=== PATIENT | male | born 1940 | race Caucasian/White ===

== ENCOUNTER 2016-09-12 08:38 | Inpatient (IN) | payer MEDICARE, BC ==
[~2016-09-12] VITALS: Ht 185.4 cm; Wt 95.5 kg
[~2016-09-12 08:38] MED LIST: CETIRIZINE HCL5 MG PO; MOBIC7.5 MG PO; PRAVASTATIN SOD10 MG PO
--- NOTE | 2016-09-12 10:51 | NUR ---
ASSESSMENT PER ADMIT PACK.PT DECLINES SOME OF MEDS.HE WISHES TO TAKE MEDS FROM HOME.INSTRUCTED PT NOT TO TAKE HOME MEDS UNTIL WE ASK MD AND HAVE ORDER TO DO SO.ALSO INSTRUCTED HIM MED WOULD HAVE TO GO TO PHARMACY FOR IDENTIFICATION.DROPLET ISOLATION ORDERED.IV SITED TO LEFT FOREARM X1 STICK USING ASEPTIC TECH,20G.PT TOLERATED WELL.CALL LIGHT IN REACH
[2016-09-12 11:02] VITALS: BP 136/78; Ht 185.4 cm; Wt 95.5 kg
--- NOTE | 2016-09-12 11:30 | NUR ---
PATIENT MOVED TO ROOM 2205 WITH HIS CONSENT. DENIES NEEDS.
[2016-09-12 11:43] LABS: BASOPHILS 0.2 % (0.0-2.0); EOSINOPHILS 0.9 % (0-7); HEMATOCRIT 42.4 % (42.0-54.0); HEMOGLOBIN 13.8 g/dL (13.5-17.5); LYMPHOCYTES 31.8 % (15-50); MCH 29.6 pg (26.0-34.0); MCHC 32.5 g/dL (31.0-37.0); MEAN PLATELET VOLUME 10.6 fL (7.4-10.4); MONOCYTES 9.5 % (2-11); NEUTROPHILS 57.6 % (40-80); PLATELET COUNT 174 10x3/uL (130-400); RBC 4.66 10x6/uL (4.20-6.10); RDW 12.2 % (11.5-14.5); WBC 5.8 10x3/uL (4.8-10.8)
[2016-09-12 12:08] LABS: ALBUMIN 3.4 g/dL (3.4-5.0); ANION GAP 11.9 mmol/L (8-16); BILIRUBIN - TOTAL 0.4 mg/dL (0.2-1.3); CALCIUM 8.9 mg/dL (8.5-10.1); CARBON DIOXIDE 28.7 mmol/L (21.0-32.0); CREATININE - SERUM 1.3 mg/dL (0.6-1.3); PHOSPHOROUS 3.7 mg/dL (2.5-4.9); POTASSIUM - SERUM 4.6 mmol/L (3.5-5.1); PROTEIN - SERUM 6.2 g/dL (6.4-8.2); THYROID STIMULATING HORMONE 1.24 uIU/mL (0.36-3.74)
--- NOTE | 2016-09-12 12:30 | NUR ---
ATE ALMOST ALL OF LUNCH. DENIES NEEDS. UP PER SELF TO BR AND TO PERFORM ADL'S.
--- NOTE | 2016-09-12 14:30 | NUR ---
OFF UNIT VIA WC FOR CHEST EXRAY.
--- NOTE | 2016-09-12 14:45 | NUR ---
RETURNED TO ROOM. DENIES NEEDS. AT BEDSIDE.
[2016-09-12 16:19] VITALS: BP 137/79; BP 141/63
--- NOTE | 2016-09-12 18:08 | NUR ---
ATE ALL OF SUPPER. NO CHANGES NOTED. DR. ENGILSH HERE. DENIES NEEDS.
--- NOTE | 2016-09-12 20:00 | NUR ---
PATIENT UP AT SINK BRUSHING HIS TEETH. PATIENT STATED HE DOES NOT NEED ANYTHING AT THIS TIME.
[2016-09-12 21:00] VITALS: BP 137/60
[2016-09-13 01:00] VITALS: BP 138/58
[2016-09-13 05:00] VITALS: BP 118/58
[2016-09-13 08:38] VITALS: BP 125/66
[2016-09-13 09:24] LABS: APPEARANCE CLEAR (CLEAR); BILIRUBIN NEGATIVE (NEGATIVE); COLOR YELLOW (YELLOW); GLUCOSE NEGATIVE (NEGATIVE); KETONE NEGATIVE (NEGATIVE); LEUKOCYTE ESTERASE NEGATIVE (NEGATIVE); NITRITE NEGATIVE (NEGATIVE); PROTEIN NEGATIVE (NEGATIVE); SPECIFIC GRAVITY 1.015 (1.005-1.020); UROBILINOGEN NORMAL (NORMAL)
[2016-09-13 11:56] VITALS: BP 142/69
--- NOTE | 2016-09-13 12:40 | NUR ---
RESUME PLAN OF CARE. REPORT FROM NING LEDEZMA. ALERT AND ORIENTED X4. DENIES SOB OR PAIN. PLAN TO MOVE TO 2240 AFTER CLEAN. IV LT FA PATENT, INFUSING ORDERED. CONTINUE PLAN OF CARE AND SAFETY PRECAUTIONS.
[2016-09-13 15:46] VITALS: BP 129/63
--- NOTE | 2016-09-13 16:49 | NUR ---
ALERT AND ORIENTED X4. TRANSFER TO ROOM 2240 PER LILY. DENIES SOB OR PAIN. BED LOCKED AND LOW. CALL LIGHT IN REACH. TWO SIDERAILS UP.
[2016-09-13 19:00] VITALS: BP 132/69
[2016-09-14 04:00] VITALS: BP 120/62
--- NOTE | 2016-09-14 07:15 | NUR ---
AWAKE ALERT COLOR ADQ SKIN WARM AND DRY RESP EVEN AND UNLABORED AT PRESENT.
[2016-09-14 09:06] VITALS: BP 141/50
--- NOTE | 2016-09-14 09:15 | NUR ---
MEDS GIVEN COLT WELL FAMILY AT BEDSIDE.
--- NOTE | 2016-09-14 10:48 | CN ---
PATIENT NAME:SAI FORD MEDICAL RECORD: [id number] : 40 LOCATION:D[facility] ADMIT DATE: 09/12/16 ACCOUNT: [id number] CONSULTING PHYSICIAN: SHABANA CROSS MD REFERRING PHYSICIAN: GAIL ENGLISH MD DATE OF CONSULTATION: 09/13/2016 Rheumatology Consultation HISTORY OF PRESENT ILLNESS: Sai Ford is a 76-year-old gentleman whom I have been asked to evaluate by Dr. English regarding history of abnormal chest CT since April 2016 showing some interstitial changes and "tree-in-bud" changes which have been unchanged on CTs since April 2016, August 2016 and September 2016. The patient underwent BAL in August 2016. At which time, he was found to have multiple drug resistant pseudomonas. QuantiFERON TB gold and AFB smears were negative. Final TB cultures pending. TB DNA test was negative. Fungal culture and serologies were negative. The patient is now hospitalized with cough and noted to be bronchitis by Dr. De Jesus and treated with Rocephin. Overall, he is improving. He denies current chills, sweats or rigor. The patient has had arthritis for several years. He has had enlargement of his PIPs and DIPs with limited motion with nodule formation on his joints. He also has some mild enlargement around the thumbs. He reports some intermittent mild hand swelling which is exacerbated by use of his hands. He has relatively little discomfort or swelling around the MCPs or wrists. In addition, he has prominent bony enlargement of first MTPs bilaterally, but he has had relatively little discomfort in those joints. He does not report any episodes of ____ or other acute oligoarticular or monoarthritis. The patient was found to have a positive rheumatoid factor of 59.5 on 08/06/2016, rheumatoid factor screen is currently positive, repeat titer pending. FANTASMA was negative in August 2016. He has no known family history of rheumatoid arthritis, lupus, connective tissue disease or gout. He has never had renal stones. At home, he uses meloxicam 15 mg a day which helps somewhat. He was found to have B12 deficiency in 2015, treated with weekly B12 shots 1 month now and then received these monthly. The patient has had some tingling in his feet and lower legs in August 2016, but this has not improved with treatment with B12. He has never had chemotherapy, heavy metal poisoning, diabetes or consumed large amounts of alcohol. HOME MEDICATIONS: Pravastatin 10 mg daily, meloxicam 15 mg daily, Zyrtec 5 mg daily and vitamin B12 shots monthly. CURRENT MEDICATIONS: Cefazolin 2 grams IV every 12 hours, started on 09/12/2016, albuterol updrafts t.i.d., meloxicam 15 mg daily, Flonase daily, pravastatin 20 mg daily, Mucinex DM b.i.d., fexofenadine 60 mg daily, Pepcid 20 mg b.i.d., Lovenox 40 mg subcutaneous daily, Tessalon 200 mg t.i.d., IV fluids, CONSULT REPORT [id number] SAI FORD acetaminophen p.r.n. ALLERGIES: HE REPORTS ALLERGIES TO MOLD. THERE ARE NO REPORTS OF ANY MEDICATION ALLERGIES. PAST MEDICAL HISTORY: The patient had cervical spine fusion in 2013. He had melanoma resected from his left suprascapular area in 2009 without known recurrence. Lymph node dissection at that time was negative. He has osteoarthritis and degenerative disease in his lower back by MRI at [facility]. He has had arthritis as discussed above. Asthma, ____. He has had tingling in his feet or legs since 2016. He was found to have B12 deficiency in 2016 and treated with monthly IM B12 without apparent improvement in tingling. SOCIAL HISTORY: Former smoker, does not drink alcohol. He is retired. FAMILY HISTORY: Parent had lung disease and cancer. Positive family history of ASHD. There is no known family history of rheumatoid arthritis, lupus or connective tissue disease or gout. REVIEW OF SYSTEMS: See history of present illness. He has moderate hearing loss, wears hearing aids. He denies mouth ulcers, dysphagia, thyroid disease, lymphadenopathy, chest pain wheeze, orthopnea, PND, myocardial infarction, angina, epigastric discomfort, ulcers, hepatitis, gallstones, dysuria, urgency, hesitancy, TIA, stroke, bleeding or clotting disorders, mood change or memory loss. PHYSICAL EXAMINATION: VITAL SIGNS: Blood pressure 129/63, pulse 78, respirations 20, temperature 98.2. GENERAL: The patient is a well-developed elderly man in no acute distress. HEENT: Head, normal male hair pattern. Eyes, conjunctivae are clear. Mouth is slightly dry without lesions. NECK: Free of adenopathy or masses. LUNGS: Clear without rales, rhonchi or dullness. CARDIOVASCULAR: S1, S2 are normal without gallop, murmur or rub. ABDOMEN: Soft, nontender without organomegaly or masses. MUSCULOSKELETAL: There is bony enlargement of all PIPs and DIPs with superimposed nodules most of these joints. Fingers have limited flexion and extension. MCPs are nontender without inflammation. Wrists have almost full range of motion without discomfort. There is mild bony enlargement and mild limited range of motion of the first CMCs, MCPs with mild osteoarthritis, stenciling machine tender strength is fair. Tinel sign is negative. Prominent nontender bony enlargement of first MTPs bilaterally, questionable nodule or angular deformity of the left second TIP joint (possible remote trauma), questionable tenderness in the right plantar heel from plantar fasciitis. There is no inflammation or limited motion of the ankles, knees, hips, elbows or shoulders. NEUROLOGIC: He is quite hard of hearing. Otherwise, cranial nerves are intact. He has some tingling to light touch in the feet and lower legs. Muscle strength is 5/5, proximally and distally. SKIN: He has an ulcer on the PIP and DIP joints as outlined above. There are no nodules on the ears, elbows, knees, questionable nodules around the feet. IMPRESSIONS: 1. Arthritis of hands and feet. A. Probably involving the PIPs and DIPs with bony enlargement and nodules. CONSULT REPORT [id number] SAI FORD Consider rheumatoid arthritis and/or possibly gout. B. Arthritis of thumbs bilaterally. C. Probably involving the first MTPs, consider gout or osteoarthritis. D. Positive rheumatoid factor 59.5. 2. History of cervical spine fusion. 3. Abnormal chest CT in April 2016 and September 2016 with stable interstitial tree-in-bud type changes. 4. 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 5. Melanoma resected from left upper scapular area in 2009 with negative lymph node dissection without known recurrence. RECOMMENDATIONS: 1. Await current rheumatoid factor titer. 2. Check CCP. 3. Hepatitis B and C serologies. 4. Uric acid. 5. X-rays of hands and feet. 6. Caution and continue meloxicam, observe for any GI side effects. 7. If inflammatory arthritis is detected, we will try to avoid immunosuppressive medications in line of his multi-drug resistant Pseudomonas. 8. Defer evaluation of chronic right chest CT changes with pulmonary. 9. Continue broad-spectrum antibiotics for bronchitis per infectious disease. DISCUSSION: Mr. Ford's chest findings are primarily on the right side and there are no reports of any involvement of the left lung. It would be unusual for rheumatoid arthritis to cause the problem of interstitial disease on one side, but certainly possible. I cannot hear any definite rales at this time. Let us see what his x-rays of his hands and the serological tests show. He does have prominent ulcers around the PIP and DIP joints. If he is diagnosed with rheumatoid arthritis, we will avoid immunosuppressor drugs, possibly we could treat with something mild such as hydroxychloroquine. TRANSINT:[id number] Voice Confirmation ID: [id number] DOCUMENT ID: [id number] SHABANA CROSS MD at 1048 CC: [id number] DICTATION DATE: 09/13/162013 HOME CARE SPECIALIST: 09/14/16 0012 ADM IN [facility] [address] [place] [address]
--- NOTE | 2016-09-14 12:00 | NUR ---
TELEMTRY IN PLACE NSR AT PRESENT N/C VOICED AT PRESENT.
[2016-09-14 12:26] VITALS: BP 143/52
--- NOTE | 2016-09-14 14:00 | NUR ---
VISITORS AT BEDSIDE N/C VOICED AT PRESENT.
--- NOTE | 2016-09-14 16:00 | NUR ---
QUIET IN ROOM AT PRESENT ALERT TALKATIVE AT PRESENT N/C.
[2016-09-14 16:13] VITALS: BP 138/50
--- NOTE | 2016-09-14 18:36 | NUR ---
TO X-RAY FOR CXR IV CONT AT 50CC/HR/IVAC FAMILY AT BEDSIDE AT PRESENT.
[2016-09-14 19:00] VITALS: BP 146/64
--- NOTE | 2016-09-15 02:54 | NUR ---
PT IS ASLEEP WITH A DARK ROOM DESIRED. THE RESPIRATIONS ARE EASY AND NO DISTESS IS NOTED. HE REMAINS IN DROPLET ISOLATION.. THE BED IS LOW, RAILS UP X'S 2, WITH THE CALL LIGHT AT HAND.
[2016-09-15 04:00] VITALS: BP 128/71
[2016-09-15 07:44] LABS: BASOPHILS 0.2 % (0.0-2.0); EOSINOPHILS 2.1 % (0-7); HEMOGLOBIN 13.6 g/dL (13.5-17.5); LYMPHOCYTES 36.7 % (15-50); MCH 29.7 pg (26.0-34.0); MCHC 32.4 g/dL (31.0-37.0); MCV 91.7 fL (80.0-100.0); MEAN PLATELET VOLUME 10.1 fL (7.4-10.4); MONOCYTES 9.6 % (2-11); NEUTROPHILS 51.4 % (40-80); PLATELET COUNT 167 10x3/uL (130-400); RBC 4.58 10x6/uL (4.20-6.10); RDW 12.5 % (11.5-14.5); WBC 6.2 10x3/uL (4.8-10.8)
[2016-09-15 08:06] LABS: CALC OSMOLALITY 289 mosm/kg (275-300); CALCIUM 8.5 mg/dL (8.5-10.1); CARBON DIOXIDE 29.5 mmol/L (21.0-32.0); CHLORIDE - SERUM 110 mmol/L (98-107); CREATININE - SERUM 1.2 mg/dL (0.6-1.3); GLUCOSE 100 mg/dL (74-106); POTASSIUM - SERUM 4.1 mmol/L (3.5-5.1); PRO BNP 215 pg/mL (0-450); SODIUM 145 mmol/L (136-145); UREA NITROGEN 14 mg/dL (7-18); eGFR NON AFRICAN AMERICAN 63 mL/min (90-120)
[2016-09-15 08:13] LABS: TROPONIN-I < 0.017 ng/mL (0.000-0.060)
--- NOTE | 2016-09-15 08:15 | NUR ---
RECEVIED PATIENT DURING WALKING ROUNDS. PATIENT LYING IN BED WITH EVEN RESPIRATIONS. NO SIGNS OF DISTRESS NOTED. PPE WORN WHILE IN ROOM. ASSESSMENT DONE PER FLOW SHEET. BED IN LOW POSITION AND CALL LIGHT WITHIN REACH. WILL CONTINUE TO MONITOR.
[2016-09-15 08:24] VITALS: BP 119/65
[2016-09-15 11:52] VITALS: BP 120/72
--- NOTE | 2016-09-15 12:01 | NUR ---
PATIENT SITTING UP IN CHAIR AT THIS TIME. IV RESTARTED IN RIGHT ARM. 22 G. X 1 STICK. PATIENT TOLERATED WITH SMALL AMOUNT OF PAIN. NO COMPLAINTS. CALL LIGHT WITHIN REACH.
[2016-09-15 16:27] VITALS: BP 156/70
[2016-09-15] MEDS ORDERED: KEFLEX500 MG PO (17:08)
[2016-09-15] MEDS ORDERED: OMEPRAZOLE20 M1 PO (17:09)
--- NOTE | 2016-09-15 18:11 | NUR ---
PT DISCHARGE ORDERS PUT IN. WENT OVER INSTRUCTIONS WITH PT, NO QUESTIONS. REMOVED IV WITH CATHETER INTACT AND WALKED PT OUT OF THE BUILDING
[2016-09-17 10:16] LABS: HEPATITIS C ANTIBODY <0.1 (0.0-0.9)
[2016-09-17 20:08] LABS: CYCLIC CITRULL PEPTIDE IGG/IGA 3 units (0-19)
--- NOTE | 2016-09-23 15:45 | EC ---
PATIENT:SARA FORD DATE OF SERVICE: 09/12/16 SEX: M MEDICAL RECORD: [id number] DATE OF : 40 LOCATION:D.MS [facility] AGE OF PATIENT: 76 ADMISSION DATE: 09/12/16 REFERRING PHYSICIAN: INTERPRETING PHYSICIAN: JESSICA VALDES M.D. ECHOCARDIOGRAM REPORT ECHO CHARGES 4 ECHO COMPLETE CLINICAL DIAGNOSIS: dyspnea ECHOCARDIOGRAPHIC MEASUREMENTS (adult normal given) AC root (d.<3.7cm) 3.4 LV Septum d (<1.2 cm> 1.2 Valve Excursion LV Septum (systole) Left Atria (s.<4.0cm> 3.0 LVPW d(<1.2cm) 1.2 RV (d.<2.3cm) 2.4 LVPW (sytole) LV diastole(<5.6CM) 4.3 MV E-F(>70mm/sec) LV systole 3.1 LVOT Diameter 2.0 MV exc.(>10mm) Est.ejection fraction (50-75%) 55 Pericardial Effusion DOPPLER: LVIT A 69 E 90 LA RVSP LVOT 148 AOP1/2T Asc. Ao 180 RVOT RA PA 117 AV Gradient Peak 12.9 AV Mean 6.9 AV Area 2.5 MV Gradient Peak 3.6 MV Mean 1.4 MV Area 4.0 COMMENTS: Car Cleaner: Suzanne Messina [employer] Shift Superintendent:Blanca Valdes TAPE# DATE OF SERVICE: 09/14/2016 REFERRING PHYSICIAN: Owen Woods MD INDICATION: Dyspnea. DESCRIPTION: Left ventricle appears normal in size and function. No wall motion abnormalities are seen. Its ejection fraction is 60%. Mitral valve structures are normal. There is mild regurgitation seen. Left atrium is normal in size. The aortic valve is trileaflet. There is no stenosis or regurgitation ECHOCARDIOGRAM REPORT [id number] SARA FORD seen. Right ventricle is normal in size and function. Tricuspid valve is normal. There is no regurgitation seen. Right atrium is normal in size. There is no pericardial effusion noted. IMPRESSION: 1. Normal left ventricular size and function, ejection fraction of 55% to 60%. 2. Mild mitral regurgitation. TRANSINT:[id number] Voice Confirmation ID: [id number] DOCUMENT ID: [id number] JESSICA VALDES M.D. at 1545 CC: [id number] DICTATION DATE: 09/14/16 174 FILM TESTS CHECKER: 09/14/166 DIS IN 09/15/16 [id number] [place] [address]
--- NOTE | 2016-09-25 09:13 | CN ---
PATIENT NAME:SARA FORD MEDICAL RECORD: [id number] : 40 LOCATION:D[facility] ADMIT DATE: 09/12/16 ACCOUNT: [id number] CONSULTING PHYSICIAN: AALIYAH WILD MD REFERRING PHYSICIAN: GAIL ENGLISH MD DATE OF CONSULTATION: 09/12/2016 CONSULT REQUESTING PHYSICIAN: Gail English MD REASON FOR CONSULTATION: Pneumonia, right middle and right lower lobe consistent with pseudomonas. HISTORY OF PRESENT ILLNESS: Mr. Ford is a 76-year-old gentleman who has an abnormal CT scan and nonresolving pneumonia in the right lower lobe, right middle lobe, with some bud-tree configuration. The patient underwent bronchoscopy on first week of August, the washing and the culture were negative, but the brush is positive for pseudomonas. According to the patient, he has no fever and chills, no night sweats, but he is coughing and there is not much sputum production. Denies any fever and chills, no night sweats. REVIEW OF SYSTEMS: As in history of present illness. PAST MEDICAL HISTORY: 1. Pneumonia x2 years ago. 2. History of melanoma removed from back. 3. History of arthritis. 4. Chronic back pain. PAST SURGICAL HISTORY: 1. Spinal fusion in 2013. 2. Melanoma removed from his back. 3. He is status post bronchoscopy. ALLERGIES: HE IS ALLERGIC TO MOLD. MEDICATIONS: He is on pravastatin, Mobic and Zyrtec. PERSONAL AND SOCIAL HISTORY: The patient has remote history of smoking. He is a nondrinker. FAMILY HISTORY: Significant for lung diseases, parents has cancer. Siblings has cardiovascular disease, lung disease and cancer. PHYSICAL EXAMINATION: GENERAL: Now, the patient is lying comfortably in bed. He is not in acute distress. VITAL SIGNS: The blood pressure is 136/78, pulse is 62, respiration is 18, temperature is 99, SpO2 is 97% on room air. HEENT: Conjunctivae pink, sclerae nonicteric. NECK: Supple, no JVD. CHEST: The chest excursion is minimal on both sides. There are crackles at the right base. No wheezing. HEART: Rhythm regular, normal sound, no murmur. ABDOMEN: Soft. Bowel sounds present. No hepatosplenomegaly. RECTAL: Deferred. CONSULT REPORT [id number] FORD,SARA EXTREMITIES: No cyanosis, no clubbing, no pedal edema. SKIN: Warm, normal turgor. CENTRAL NERVOUS SYSTEM: The patient is awake and alert. There are no obvious cranial nerve abnormality. He is hard of hearing. CHEST RADIOGRAPH: There is infiltrate, right lower lobe. OTHER LABORATORY DATA: CBC: WBC 5.8, hemoglobin 13.8, hematocrit 42.4, the platelet count 174. Chemistry: Sodium 143, potassium is 4.6, BUN is 27, creatinine 1.7. IMPRESSION: 1. Pseudomonas pneumonia, right lower lobe, right middle lobe, the other cultures are negative, the brush is positive, possible contamination, colonization versus pathogen. 2. History of recurrent pneumonia. The etiology is not clear, possibly associated with gastroesophageal reflux disease. 3. Obstructive sleep apnea. 4. History of melanoma removed from his back. 6. Rheumatoid factor positive with arthritis, possible rheumatoid arthritis. 7. Chronic cough. 8. Ex-smoker with no documented chronic obstructive pulmonary disease. RECOMMENDATION: 1. Continue tobramycin antibiotic per Dr. De Jesus. 2. Follow labs in the morning. 3. Continue all of present home medications. The patient will need rheumatology evaluation. Dr. English, once again thanks for involving me in the care of Mr. Ford. TRANSINT:[id number] Voice Confirmation ID: [id number] DOCUMENT ID: [id number] AALIYAH WILD MD at 0913 CC: GAIL ENGLISH MD [id number] DICTATION DATE: 09/12/16 1502 SWAHILI TEACHER: 09/12/16 1531 DIS IN 09/15/[address] [facility] [address] [place] [address]
--- NOTE | 2016-11-30 13:41 | DS ---
PATIENT:SARA FORD I :40 MEDICAL RECORD: [id number] DISCHARGE SUMMARY ADMISSION DATE: 09/12/16 DISCHARGE DATE: 09/15/16 DATE OF ADMISSION: 09/12/2016 DATE OF DISCHARGE: 09/15/2016 DISCHARGE DIAGNOSES: Pneumonia, thought to be secondary to multidrug resistant pseudomonas, chronic obstructive pulmonary disease, nicotine dependence, rheumatoid arthritis, bronchitis. DISCHARGE MEDICATIONS: Per med reconciliation. DISCHARGE DIET: As tolerated. DISCHARGE ACTIVITY: As tolerated. HOSPITAL COURSE: The patient admitted from pulmonary clinic due to increasing respiratory distress. History of previous bronchoalveolar lavage was positive for multi-drug resistant pseudomonas. Consultation was obtained with Dr. De Jesus. The patient was initially placed on broad-spectrum antibiotics. Dr. De Jesus evaluated the patient and felt his comorbid conditions would not tolerate strong antibiotics in lieu of movement of his clinical presentation, the patient was changed to Rocephin IV and continued antibiotics. The patient remained stable, was changed eventually to cephalexin. The patient was subsequently discharged after evaluation with ID. Rheumatology was consulted due to history of positive rheumatoid factor and he underwent rheumatologic evaluation during hospitalization with complete workup upon discharge. TRANSINT:[id number] Voice Confirmation ID: [id number] DOCUMENT ID: [id number] GAIL ENGLISH MD at 1341 CC: [id number] DICTATION DATE: 10/20/16 1116 GEM SETTER: 10/20/162005 DIS IN 09/15/16 [facility] [address] [place] [address]
== END 2016-09-15 19:16 | disposition home or self-care (01) | DRG 179 ==
LOC: D.MS 08:38 → D.SDCHOLD 08:38 → D.MS 08:49
PROVIDERS: Internal Medicine Rheumatology; ADMIT Family Medicine
DX: J15.1 Pneumonia due to Pseudomonas (principal); Z87.891 Personal history of nicotine dependence; G47.33 Obstructive sleep apnea (adult) (pediatric); M06.9 Rheumatoid arthritis, unspecified; J40 Bronchitis, not specified as acute or chronic

== ENCOUNTER → 2016-10-04 10:00 | Outpatient (CLI) | payer MEDICARE, BC ==
[2016-09-12 11:02] VITALS: BMI 27.7
[~2016-10-04 10:00] MED LIST changes: +KEFLEX500 MG PO; +OMEPRAZOLE20 M1 PO
== END | disposition home or self-care (01) ==
LOC: D.RAD 10:00
DX: J45.909 Unspecified asthma, uncomplicated (principal)

== ENCOUNTER → 2017-04-08 07:40 | Outpatient (CLI) | payer MEDICARE, BC ==
[2016-09-12 11:02] VITALS: BMI 27.7
== END | disposition home or self-care (01) ==
LOC: D.RAD 07:40
DX: J45.909 Unspecified asthma, uncomplicated (principal)

== ENCOUNTER → 2017-12-31 08:37 | Outpatient (CLI) | payer MEDICARE, BC ==
[2016-09-12 11:02] VITALS: BMI 27.7
== END | disposition home or self-care (01) ==
LOC: D.RT 08:37
DX: R93.8 Abnormal findings on diagnostic imaging of other specified body structures (principal)

== ENCOUNTER → 2018-11-27 09:52 | Outpatient (CLI) | payer MEDICARE, BC ==
[2016-09-12 11:02] VITALS: BMI 27.7
== END | disposition home or self-care (01) ==
LOC: D.CT 09:52
PROVIDERS: ATTEND Family Medicine
DX: I70.213 Atherosclerosis of native arteries of extremities with intermittent claudication, bilateral legs (principal)

== ENCOUNTER → 2019-01-05 09:00 | Outpatient (CLI) | payer MEDICARE, BC ==
[2016-09-12 11:02] VITALS: BMI 27.7
== END | disposition home or self-care (01) ==
LOC: D.RAD 03-06 10:00
PROVIDERS: ATTEND Internal Medicine Pulmonary Disease
DX: R05 Cough (principal)

== ENCOUNTER → 2020-04-24 08:56 | Outpatient (CLI) | payer MEDICARE, BC ==
[2016-09-12 11:02] VITALS: BMI 27.7
== END | disposition home or self-care (01) ==
LOC: D.RT 12-14 11:00 → D.RAD 12-14 11:30 → D.RT 08:56
PROVIDERS: ATTEND Internal Medicine Pulmonary Disease
DX: J45.909 Unspecified asthma, uncomplicated (principal); Z11.59 Encounter for screening for other viral diseases